=== PATIENT | female | born 1965 | race Caucasian/White ===

== ENCOUNTER 2017-07-17 13:01 | Inpatient (IN) | payer OTHER ==
[~2017-07-17] VITALS: Ht 154.9 cm; Wt 97.2 kg
[2017-07-17 14:28] VITALS: Ht 154.9 cm; Wt 97.2 kg
[2017-07-17 15:21] LABS: BASOPHIL % 0.8 % (0-2); PLATELET COUNT 208 x10^3mcL (130-400); RED CELL DISTRIBUTION WIDTH 13.8 % (11.5-14.5)
[2017-07-17 15:43] LABS: CALCIUM 9.3 mg/dL (8.5-10.1); CARBON DIOXIDE 26.7 mmol/L (21-32); CREATININE SERUM 1.1 mg/dL (0.6-1.0); POTASSIUM SERUM 3.8 mmol/L (3.5-5.1)
[2017-07-17 15:48] LABS: ALBUMIN 3.7 g/dL (3.4-5.0); BILIRUBIN TOTAL 0.7 mg/dL (0.20-1.00); TOTAL PROTEIN, SERUM 7.4 g/dL (6.4-8.2)
[2017-07-17] MEDS ORDERED: NOR10 PO (16:13)
[2017-07-17] MEDS ORDERED: PREDNISONE20 MG PO (16:13)
[2017-07-17] MEDS ORDERED: AMBIEN10 MG PO (16:13)
[2017-07-17] MEDS ORDERED: NATURE'S BLEND F1 MG PO (16:13)
[2017-07-17] MEDS ORDERED: ZESTRIL10 MG PO (16:14)
[2017-07-17 17:52] VITALS: BP 173/93
[2017-07-17 20:05] LABS: CHOLESTEROL/HDL RATIO 2.4; PHOSPHOROUS 1.4 mg/dL (2.5-4.9)
[2017-07-17 20:10] LABS: T3 TOTAL 0.96 ng/mL
[2017-07-17 20:46] LABS: FREE T4 1.23 ng/dL (0.76-1.46); FREE THYROXINE INDEX 3.2 ug/dL (1.4-4.5); T4(THYROXINE) 9.1 ug/dL (4.7-13.3)
[2017-07-17 21:45] VITALS: BP 115/71
[2017-07-18 03:36] LABS: UA SPECIFIC GRAVITY 1.015 (1.005-1.035); microscopic required? YES; urine erythrocyte 2+ (NEGATIVE)
[2017-07-18 03:51] LABS: AMPHETAMINE QUAL UR NONE DETECTED (NEG <=1000)
[2017-07-18 05:30] VITALS: BP 132/75
[2017-07-18 08:32] LABS: CARBON DIOXIDE 26.4 mmol/L (21-32); CHLORIDE SERUM 111 mmol/L (98-107); CREATININE SERUM 0.7 mg/dL (0.6-1.0); GFR1 > 60 mL/min; GLUCOSE SERUM 83 mg/dL (74-106); PHOSPHOROUS 2.6 mg/dL (2.5-4.9); POTASSIUM SERUM 3.6 mmol/L (3.5-5.1); SODIUM SERUM 144 mmol/L (136-145)
[2017-07-18 09:12] LABS: BASOPHIL % 0.3 % (0-2); PLATELET COUNT 153 x10^3mcL (130-400); RED CELL DISTRIBUTION WIDTH 13.9 % (11.5-14.5)
[2017-07-18 09:35] VITALS: BP 126/69
[2017-07-18 12:50] VITALS: BP 124/72
[2017-07-18 17:45] VITALS: BP 112/65
[2017-07-18 19:34] VITALS: BP 106/56
[2017-07-18 21:38] VITALS: BP 112/58
[2017-07-19 06:05] VITALS: BP 135/70
[2017-07-19 07:44] LABS: BASOPHIL % 0.5 % (0-2); PLATELET COUNT 157 x10^3mcL (130-400); RED CELL DISTRIBUTION WIDTH 13.6 % (11.5-14.5)
[2017-07-19 07:56] LABS: CALCIUM 7.7 mg/dL (8.5-10.1); CHLORIDE SERUM 111 mmol/L (98-107); CREATININE SERUM 0.6 mg/dL (0.6-1.0); GFR1 > 60 mL/min; GLUCOSE SERUM 80 mg/dL (74-106); MAGNESIUM 1.9 mg/dL (1.8-2.4); PHOSPHOROUS 2.1 mg/dL (2.5-4.9); POTASSIUM SERUM 3.6 mmol/L (3.5-5.1); SODIUM SERUM 144 mmol/L (136-145)
[2017-07-19 09:25] VITALS: BP 133/77
[2017-07-19] MEDS ORDERED: FLO4 PO (09:53)
[2017-07-19] MEDS ORDERED: ZOF4 PO (09:54)
[2017-07-19] MEDS ORDERED: BACTRIM1 TAB PO (09:57)
[2017-07-19] MEDS ORDERED: LAC PO (09:57)
[2017-07-19] MEDS ORDERED: NORCO1 TA2 PO (09:58)
[2017-07-19] MEDS ORDERED: CYCLOBENZAPRINE5 MG PO (10:02)
[2017-07-19 13:39] VITALS: BP 133/77
== END 2017-07-19 16:53 | disposition home or self-care (01) | DRG 465 ==
LOC: ED 13:01 → DU 16:27 → MU 07-18 22:02
PROVIDERS: Emergency Medicine; Family Medicine; Family Medicine Sports Medicine
PROC: 3E0234Z Introduction of Serum, Toxoid and Vaccine into Muscle, Percutaneous Approach (ICD-10-PCS; principal; 2017-07-17)
DX: N20.0 Calculus of kidney (principal); N17.0 Acute kidney failure with tubular necrosis; N13.39 Other hydronephrosis; I10 Essential (primary) hypertension; I16.0 Hypertensive urgency; M06.9 Rheumatoid arthritis, unspecified; Z23 Encounter for immunization; Z90.710 Acquired absence of both cervix and uterus; D64.9 Anemia, unspecified; E83.51 Hypocalcemia; E87.8 Other disorders of electrolyte and fluid balance, not elsewhere classified; N39.0 Urinary tract infection, site not specified
CPT/HCPCS: 83880; 84439; 90658; J0696; J1885; J2405; J3010; J7030; J7512; Q0092

== ENCOUNTER 2019-03-23 04:16 | Emergency (ER) | payer OTHER ==
[~2019-03-23] VITALS: Ht 154.9 cm; Wt 93.4 kg
[~2019-03-23 04:16] MED LIST: AMBIEN10 MG PO; BACTRIM1 TAB PO; CYCLOBENZAPRINE5 MG PO; FLO4 PO; LAC PO; NATURE'S BLEND F1 MG PO; NOR10 PO; NORCO1 TA2 PO; PREDNISONE20 MG PO; ZESTRIL10 MG PO; ZOF4 PO
[2019-03-23 04:20] VITALS: Ht 154.9 cm; Wt 93.4 kg
[2019-03-23 04:54] LABS: BASOPHIL % 0.5 % (0-2); PLATELET COUNT 159 x10^3mcL (130-400); RED CELL DISTRIBUTION WIDTH 13.1 % (11.5-14.5)
[2019-03-23 06:01] LABS: CALCIUM 8.2 mg/dL (8.5-10.1); CREATININE SERUM 1.3 mg/dL (0.6-1.0); POTASSIUM SERUM 3.5 mmol/L (3.5-5.1)
[2019-03-23 06:06] LABS: ALBUMIN 3.4 g/dL (3.4-5.0); BILIRUBIN TOTAL 0.38 mg/dL (0.20-1.00)
[2019-03-23 06:59] VITALS: BP 109/61
[2019-03-23 07:08] LABS: UA SPECIFIC GRAVITY >=1.030 (1.005-1.035); microscopic required? YES; urine erythrocyte 3+ (NEGATIVE)
== END 2019-03-23 06:59 | disposition home or self-care (01) ==
LOC: ED 04:16
PROVIDERS: Emergency Medicine
DX: N20.0 Calculus of kidney (principal)
CPT/HCPCS: J1885; J2405

== ENCOUNTER 2020-01-10 08:38 | Inpatient (IN) | payer OTHER ==
[~2020-01-10] VITALS: Ht 154.9 cm; Wt 70.3 kg
[~2020-01-10 08:38] MED LIST changes: +D3 20002000 IU PO; +ZESTRIL20 MG PO
[2020-01-10 09:05] VITALS: BP 144/85
[2020-01-10 17:19] VITALS: BP 129/68
--- NOTE | 2020-01-10 17:31 | NUR ---
RECEIVED PT FROM OR, PT ADMIT FOR OSTEOARTHRITIS RIGHT KNEE. S/P TOTAL KNEE REPLACEMENT. PT IS A/O X4, VERBAL RESPONSIVE. LUNG SOUND CLEAR BILATERAL, NO COUGH, NO SOB. PT IS ON 2L/ MIN O2 VIA NC. PO2 99%, DENY ANY CHEST PAIN, BOWEL SOUND PRESENT ALL 4 QUADRANTS, NO DISTENTION, NO TENDER. PEDAL PULSE PRESENT BOTH FEET, TRACE EDEMA BLE. IV AT LEFT WRIST, NO LEAKING, NO INFILTRATION. DRESSING AT RIGHT KNEE INTACT WITH POLAR MACHINE ON THE TOP. ALL ADLS ASSIST, ALL NEED MET, CALL LIGHT IN REACH, WILL CONTINUE TO MONITOR.
--- NOTE | 2020-01-10 18:35 | NUR ---
AWAKE/ALERT/ORIENTED X4. DENIED PAIN THIS TIME. DERG TO RT KNEE C/D/I. POLAR MACHINE IN PLACE. IVF OF L.R. 75CC/HR TO L WRIST AREA. ENDORSED CARE TO NOC NURSE.
--- NOTE | 2020-01-10 19:30 | NUR ---
PT RECIEVED FROM DAY NURSE. PT RESTING IN BED AT THIS TIME. DENIES PAIN OR DISCOMFORT AT THIS TIME. A/O X4, CALM AND COOPERATIVE AT THIS TIME. PT M/S, DENIES CP, NV, DIZZINESS, OR PALPATATIONS. PALPABLE PULSES, TRACE EDEMA BLE. SCD TO LLE. ABD SOFT AND ROUND, DENIES PAIN TO PALPATION. BREATHING E/U ON RA. DENIES SOB. GEN WEAKNESS, PT S/P R KNEE REPLACEMENT. COVERED WITH DRESSING CDI. POLAR MACHINE TO R KNEE. IV TO LWRIST, CDI AND INFUSING. BED AT LOWEST POSITION. CALL LIGHT WITHIN REACH. WILL CONTINUE TO MONITOR.
[2020-01-10 20:12] VITALS: BP 123/67
--- NOTE | 2020-01-11 | NUR ---
PT RESTING IN BED AT THIS TIME. DENIES PAIN OR DISCOMFORT. PT BREATHING E/U ON RA. NO S/S OF ACUTE DISTRESS AT THIS TIME. WILL CONTINUE TO MONITOR.
[2020-01-11 05:03] VITALS: BP 122/61
--- NOTE | 2020-01-11 06:04 | NUR ---
PT RESTING IN BED AT THIS TIME. STATING PAIN TO RLE AT THIS TIME. MEDICATED WITH PRN HYDROCODONE. PT BREATHING E/U ON RA. NO S/S OF ACUTE DISTRESS AT THIS TIME. BED AT LOWEST POSITION. CALL LIGHT WITHIN REACH. WILL ENDORSE TO DAY NURSE.
--- NOTE | 2020-01-11 07:45 | NUR ---
RECEIVED PT IN BED, ASSESSED AND DOCUMENTED. DENIES PAIN THIS TIME. STABLE. SAFTEY PRECAUTIONS ARE IN PLACE. WILL MONITOR.
[2020-01-11 08:00] LABS: CALCIUM 8.4 mg/dL (8.5-10.1); CARBON DIOXIDE 26.9 mmol/L (21-32); CHLORIDE SERUM 103 mmol/L (98-107); CREATININE SERUM 0.9 mg/dL (0.6-1.0); GFR1 > 60 mL/min; GLUCOSE SERUM 156 mg/dL (74-106); POTASSIUM SERUM 3.8 mmol/L (3.5-5.1); SODIUM SERUM 138 mmol/L (136-145)
[2020-01-11 08:43] VITALS: BP 124/65
[2020-01-11 09:33] LABS: PLATELET COUNT 138 x10^3mcL (130-400); RED CELL DISTRIBUTION WIDTH 13.8 % (11.5-14.5)
[2020-01-11 09:53] LABS: BASOPHIL % 0 % (0-2)
--- NOTE | 2020-01-11 11:00 | NUR ---
PT RESTING IN BED COMFORTABLY. DENIES PAIN THIS TIME. STABLE.
--- NOTE | 2020-01-11 13:00 | NUR ---
PT RESTING IN BED COMFORTABLY. EATING WELL. DENIES ANY PAIN.
--- NOTE | 2020-01-11 13:46 | NUR ---
PT C/O RT KNEE PAIN,11/30 AFTER P.T WORK WITH PT. OXYCODONE 5MG PO GIVEN ORDERED. PT RESTING IN BED, GAVE COMFORTABLE POSITION.
--- NOTE | 2020-01-11 14:46 | NUR ---
PT RESTING IN BED, STABLE. DOESNOT FEEL PAIN ANYMORE. WILL MONITOR.
--- NOTE | 2020-01-11 16:15 | NUR ---
CALLED AND ASKED ABOUT PT. INFORMED HIM ABOUT PT AND P.T WORK WITH PT. HE SAID PT CAN GO HOME, DC PT HOME. 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 INFORMED PT ABOUT THAT AND SHE IS HAPPY TO GO HOME. P.T SAID PT IS SAFTE TO GO HOME. WILL DC PT HOME SOON. CHARGE NURSE AWARE.
[2020-01-11 16:29] VITALS: BP 124/65
[2020-01-11 16:34] VITALS: BP 124/65
--- NOTE | 2020-01-11 16:45 | NUR ---
DISCHARGE INSTRUCTIONS GIVEN. PB SIGNED AND SENT WITH PT. IV REMOVED AND DRESSING APPLIED. FAMILY WAITING IN THE LOBBY. INFORMED PT ABOUT TO PICK PRESCRIPTION MED FROM HER PHARMACY AND CONTINUE HOME MED. PT DENIES ANY PAIN. NO DISTRESS NOTED, STABLE. FINANCE ADVISOR WHEELED PT DOWN TO [facility]. DC HOME.
== END 2020-01-11 16:50 | disposition home or self-care (01) | DRG 302 ==
LOC: MU 08:38 → OR 10:30 → DS 12:30 → OR 12:30 → EDSTATUS 12:30 → MU 12:30
PROVIDERS: ADMIT Orthopaedic Surgery; ATTEND Orthopaedic Surgery
PROC: 0SRC0J9 Replacement of Right Knee Joint with Synthetic Substitute, Cemented, Open Approach (ICD-10-PCS; principal; 2020-01-10 12:30)
DX: M17.11 Unilateral primary osteoarthritis, right knee (principal); M06.9 Rheumatoid arthritis, unspecified; E66.9 Obesity, unspecified; I10 Essential (primary) hypertension; Z71.3 Dietary counseling and surveillance
CPT/HCPCS: 97112-GP; G0378; J0690; J1885; J2270; J2274; J2405; J2550; J3490; J7120; Q0092